=== PATIENT | female | born 2000 | race Caucasian/White ===

== ENCOUNTER 2023-01-19 17:33 | Outpatient (CLI) | payer OTHER ==
--- NOTE | 2023-01-20 08:36 | MRI Report ---
PROCEDURE: LUMBAR SPINE WO INDICATIONS: lOW BACK PAIN TECHNIQUE: Noncontrast sagittal T1 spin echo and T2 fast echo, sagittal STIR, axial T1 and T2 fast spin echo thr ough the lumbar spine. In cases with scoliosis, additional coronal T2 fast spin echo may be performe d. COMPARISON: None. FINDINGS: Image quality: Excellent. Alignment and Curvature: No plain films are available for comparison. Thus, for numbering purposes, 5 lumbar type vertebral bodies will be presumed for the current report. This should be confirmed with plain film correlation prior to any lumbar spinal intervention. Loss of normal lumbar lordosis. Bone Marrow: Marrow is of normal overall signal. No acute vertebral body compression fractures. Spinal Cord: Conus medullaris terminates at the mid L2 level. Visualized cord demonstrates normal s ignal and size. Paraspinous Soft Tissues: No paravertebral masses. T12-L1: Normal in appearance. L1-L2: Normal in appearance. L2-L3: Mild disc desiccation and diffuse disc bulge. Mild facet and ligament flavum hypertrophy. M ild canal stenosis. No foraminal stenosis. L3-L4: Mild facet and ligament flavum hypertrophy. Mild epidural lipomatosis. No significant canal nor foraminal stenosis. L4-L5: Normal in appearance. L5-S1: Normal in appearance. IMPRESSION: 1. Mild disc and facet disease, causing mild canal stenosis as above. No neural impingement. 2. Five lumbar type vertebral bodies were presumed for the purposes of the current report. Correlati on with plainfilms for numbering purposes is recommended prior to any lumbar spinal intervention. 3. Loss of normal lumbar lordosis, suggestive of muscle spasm. Reviewed by: Lashonda Crisostomo MD on 01/20/2023 8:35 AM PDT Approved by: Lashonda Crisostomo MD on 01/20/2023 8:35 AM PDT Station ID: [id number]
== END 2023-01-19 17:34 | disposition home or self-care (01) ==
LOC: DI 17:33
PROVIDERS: ATTEND Physician Assistant
DX: M47.816 Spondylosis without myelopathy or radiculopathy, lumbar region (principal); M51.36 Other intervertebral disc degeneration, lumbar region; M48.061 Spinal stenosis, lumbar region without neurogenic claudication